=== PATIENT | female | born 1945 | race Caucasian/White ===

== ENCOUNTER 2025-02-26 07:23 | Day surgery (SDC) | payer OTHER ==
[2025-02-25 11:30] LABS: Absolute Basophils 0.1 K/uL (0-0.5); Absolute Eosinophils 0.1 K/uL (0-0.5); Absolute Lymphocytes (CBC) 1.9 K/uL (0.7-4.9); Absolute Monocytes 0.5 K/uL (0.1-1.3); Absolute Neutrophil 3.2 K/uL (1.8-8.0); Eosinophils % 1.9 % (0-4.4); Hematocrit 33.8 % (36.0-45.0); Hemoglobin 11.5 g/dL (12.0-15.0); Lymphocytes % 33.3 % (15.3-44.8); MCH 30.4 pg (27.0-35.0); MCHC 34.1 g/dL (32.0-36.0); MCV 89.3 fL (80-100); MPV 7.2 fL (7.6-11.3); Monocytes % 8.1 % (3.3-12.3); Neutrophils % 55.7 % (41.7-73.7); Nucleated Red Blood Cells % 0.1 % (0-0); Platelets 264 thou/uL (152-406); RBC Red Blood Cell Count 3.79 M/uL (3.86-4.86); Red Cell Distribution Width 13.6 % (12.1-15.2)
[2025-02-25 11:33] LABS: PT Prothrombin Time 10.7 SECONDS (10-13.0); PTT, Activated Partial Thromb 27.8 SECONDS (27.2-37.4); Protime INR 0.94
[2025-02-25 11:38] LABS: Anion Gap 11.1 mEq/L (5.0-15.0); Potassium 5.1 mEq/L (3.5-5.1)
--- NOTE | 2025-02-25 12:32 | EKG ---
Test Date: 2025-02-25 Test Time: 10:44:30 Guest Services Director: ELISSA MEASUREMENT RESULTS: Intervals: Rate: 60 NM: 148 QRSD: 138 QT: 440 QTc: 440 [place]: P: 68 NM: 148 QRS: -37 T: 100 INTERPRETIVE STATEMENTS: Normal sinus rhythm Left axis deviation Left bundle branch block Abnormal ECG No previous ECG available for comparison Electronically Signed On 02-25-25 12:31:50 CDT by London Sandoval
[2025-02-26] MEDS ORDERED: NA CHLORIDE 0.9% 1,000 ML ONE (07:25)
[2025-02-26] MEDS ORDERED: dexAMETHasone 10 MG/ML VIAL ONE (07:55)
[2025-02-26] MEDS ORDERED: KETOROLAC 30 MG/ML INJ ONE (07:55)
[2025-02-26] MEDS ORDERED: ROCURONIUM 50 MG/5 ML VIAL IV ONE (07:55)
[2025-02-26] MEDS ORDERED: propofoL 200 MG/20 ML VIAL IV ONE (07:55)
[2025-02-26] MEDS ORDERED: LIDOCAINE 2% MPF 5 ML VIAL ONE (07:55)
[2025-02-26] MEDS ORDERED: FENTANYL CITR 100 MCG/2 ML ONE (07:55)
[2025-02-26] MEDS ORDERED: ONDANSETRON 4 MG/2 ML VIAL ONE (07:55)
[2025-02-26] MEDS ORDERED: MIDAZOLAM HCL 2 MG/2 ML INJ ONE (07:56)
[2025-02-26] MEDS ORDERED: SUGAMMADEX SODIUM 200 MG/2 ML VIAL IV ONE (08:23)
[2025-02-26] MEDS ORDERED: SUCCINYLCHOLINE 20 MG/ML (10 ML) IV ONE (08:23)
[2025-02-26] MEDS: CEFAZOLIN SODIUM 2 GM/VIAL ONE (08:28)
[2025-02-26] MEDS ORDERED: NS 0.9% VIAL 20 ML ONE (08:40)
[2025-02-26] MEDS ORDERED: NS 0.9% VIAL 10 ML ONE (08:42)
[2025-02-26] MEDS: LIDOCAINE HCL/EPINEPHRINE 20 ML MDV ONE (09:02)
[2025-02-26] MEDS: NA CHLORIDE 0.9% 1,000 ML ONE (09:17)
[2025-02-26] MEDS ORDERED: Mastisol Adhesive Liq ONE (09:43)
--- NOTE | 2025-02-26 11:34 | OP ---
Date of Procedure: 02/26/2025 Surgeon: Maryse Meraz MD Utility Driver: No assistants. Preoperative Diagnoses: Fecal incontinence and urge urinary incontinence that were refractory to med ical therapy. Postoperative Diagnoses: Fecal incontinence and urge urinary incontinence that were refractory to me dical therapy. Procedures Performed: Full system implantation of InterStim (complete InterStim system implantation with incision and implantation of tined quadripolar lead electrodes into left S3 foramen with fluoros copic guidance for needle placement, subcutaneous implantation of sacral nerve modulator on the left buttock and electronic analysis and programming). Anesthesia: General endotracheal. Specimens: No specimens. Complications: No complications. Drains: No drains. Condition: The patient's condition is stable. Estimated Blood Loss: Less than 10 mL. Findings: Left S3 was used for the lead placement. Left buttock was used for the implant placement. Leads 1 and 2 had good Vivian and toes. However, leads 0 and 3 had no response. The curvature of the lead was slightly more posterior, but there was no option of having tracked it in a different wa y and then on the right side, there was no response for the nerve and therefore I could not place it on the other side. The stim level, however, was very low and that with the low amplitude, there was a good response of B ellows and toes on leads 1 and 2. Indications: The patient is a 79-year-old with severe urge urinary incontinence and fecal incontinen ce. She was evaluated fully in the office and was found to be a candidate for InterStim. Discussed the benefits, risks, and chances of failure with InterStim. Office PNE was done after the consent. The patient has significant improvement more than 50% and wanted to proceed with full system implanta tion. After consenting her appropriately, she was brought to the OR, 2 g of Ancef were given. She h ad medical clearance. Description Of Procedure: She was taken and placed in a prone position on the operating table by the OR protocol after general anesthesia was given. The pillows were placed under her lower abdomen to flatten the sacrum and the shins to allow the toes to dangle freely. The patient was prepped with Be tadine solution and draped in a sterile fashion. C-arm was draped and moved into AP position for fluoroscopic mapping of the sacral region including t he midline of the sacrum, SI joint, sciatic notches, medial foraminal borders, and sacral foramina. The C-arm was moved to lateral position to image the area of the sacral promontory to the coccyx. After marking the site of entry 9 cm above the level of the tip of the coccyx and 2 cm above, I check ed this with the fluoroscopic mapping and I had to go slightly lower than it was marked. This starte d on the right side. Foramen needle was introduced feeling for the foraminal margins and entered unt il S3 foramina was identified and penetrated. The depth of the needle was confirmed and adjusted flu oroscopically. For proper needle position, tested for Vivian and plantar flexion of the great toe w ith external test stimulator. There was no response. Then, I was slightly lower in the foramen, the n there was a slight response at an amplitude of 2 and 2.5, but there was no plantar flexion of the t oe, only Vivian was noted. After changing the position of the needle to the slightly higher level in the foramen, I still had no response at all and therefore went over to the left side and once the needle was placed in the same way as on the other side, there was good response of Vivian and toes at a lower amplitude. So, I we nt on to pick this area for implantation. The foramen needle set was removed and directional guide was placed and confirmed fluoroscopically. The needle was then removed. An incision was made with an 11 blade on the fascial layer for the dire ctional guide and the lead introducer sheath and dilator were placed over the guide into the foramen to ensure radiopaque marker of the lead introducer did not extend beyond the anterior edge of the sac rum. The dilator was then unlocked and removed along with the directional guide and the lead was the n placed with the introducer sheath to the first white line. The positioning was checked with fluoro scopy. The lead was then introduced until 3 electrodes were visible below the sacrum. Each electrod e was tested for Vivian and plantar flexion of the great toe and there was excellent response on edvendra ds 1 and 2 leads. Leads 0 and 3 did not have response and there was slight posterior curvature of th e lead 1. It was viewed in the both AP and lateral views, but it tract in the same direction, so mos t optimally allowing it to stay as straight as possible, which did not change the response. I left i t in place because the other side did not have the response on the right S3 nerve. Under continuous fluoroscopy, the introducer sheath was retracted deploying the lead tines into the p arasacral tissue. Incision was made in the subcutaneous tissues of the left buttock posterior to the iliac crest and la teral to the sacrum. Blunt dissection was performed after the 15 blade was used for the skin incisio n. Blunt dissection and Bovie were used to get down through the subcutaneous tissue. Once the glute al fascia was identified and hemostasis was achieved for a sufficient pocket of the neurostimulator, the tunneling tool and the straw were placed from the lead exit site subcutaneously to the incised po cket site. Tunneling tool was removed. The lead was fed through the straw and pulled out the pocket site. This was then cleansed of bodily fluids and dried and needle was inserted into the InterStim neurostimulator header. The metal bands were aligned and the blue tip lead was below the distal port ion of the neurostimulator header. The single set screw was tightened with a hex wrench. The neurostimulator was placed in a subcutaneous pocket with the etched identification side placed up wards and the excessive lead wrapped counterclockwise around the neurostimulator. The programming he ad was placed over the implanted neurostimulator in a sterile cover to ensure adequate lead connectio n and the parameters were within normal limits. The impedances were confirmed to be within normal li mits. Wounds were irrigated with antibiotic solution and water and closed with 3-0 Vicryl subcutaneous sutu res and 4-0 Monocryl skin sutures. The counts were correct. Steri-Strips were placed and gauze was placed over the incision. The lead site was also closed with 4-0 Monocryl. Using the clinician alisha bingham, the generator was programmed and settings entered in the chart. EBL was minimal. The patien t was recovered from anesthesia and taken to PACU in stable condition. PRESTON/GERA Voice ID: [id number] Report ID: [id number]
[2025-02-26 11:55] VITALS: BP 115/45; TEMP 97.3; O2SAT 99
--- NOTE | 2025-02-26 12:06 | RAD REPORT ---
EXAM: Fluoroscopy use, Fluoroscopy <1 Hour HISTORY: SACRAL NEURO MOD COMPARISON: None FINDINGS: Multiple images were sent to PACS, during a fluoroscopically guided procedure. No radiologi st was involved in protocoling or performance of the study, and no radiologist was present for the duration of the procedure. No interpretation of the saved images will be provided. Total fluoroscopy time: 1.2 minutes. IMPRESSION: Documentation of fluoroscopy use as above. Transcribed Date/Time: 02/26/2025 12:05 PM
== END 2025-02-26 11:50 | disposition home or self-care (01) ==
LOC: OR 07:23
PROVIDERS: ATTEND Obstetrics & Gynecology
PROC: 0JH73BZ Insertion of Single Array Stimulator Generator into Back Subcutaneous Tissue and Fascia, Percutaneous Approach (ICD-10-PCS; 2025-02-26)
PROC: 01HY3MZ Insertion of Neurostimulator Lead into Peripheral Nerve, Percutaneous Approach (ICD-10-PCS; principal; 2025-02-26 08:30)
DX: R15.9 Full incontinence of feces (principal); N39.41 Urge incontinence
CPT/HCPCS: 93005; 85025; 80048; 36415; 85610; 82947 ×2; 85730; 64561; 64590; A4216 ×2; J2704; J2003; J2250; J3010; J1100; J2405; J7030 ×2; 76000